=== PATIENT | female | born 1975 | race Caucasian/White ===

== ENCOUNTER 2017-06-02 12:52 | Emergency (ER) | payer MEDICAID ==
[2017-06-02 12:57] VITALS: BP 137/95; BMI 22.1
[2017-06-02] MEDS ORDERED: DEMEROL INJ IM ONE (13:23)
[2017-06-02] MEDS ORDERED: PHENERGAN INJ 25 MG IM ONE (13:24)
--- NOTE | 2017-06-02 13:27 | DR.FBACK ---
HPI - Time Seen Time seen: 13:22 - PCP Primary Care Physician: NLD - Complaint Chief Complaint Doctor Comments: Patient complains of lower back pain for the past two days onset while moving a window air conditioner from her bedroom to her front room with onset of pain when she squat down to put the air conditioner in the room she felt the pain and it has been hurting since. States she has been having sharp pain that is non- radiating with the pain worst on movement and bending. States the pain is 10 of 10. she denies numbness in legs. She denies hematuria, dysuria or history of kidney stones. Chief Complaint:: PT. C/O LOWER BACK PAIN THAT BEGAN ON SUNDAY. PT. WAS MOVING AN AIR CONDITIONER AND USING HOLE DIGGERS IN HER GARDEN ON SUNDAY WHEN THE PAIN STARTED. - Reviewed Nurses Notes Review: Yes - Source History Provided: Patient - Mode of Arrival Mode of Arrival: Ambulatory - Timing Onset of Chief Complaint: 05/31/17 - Duration Duration: Constant How lon Duration: Days - Location Back Pain Location: BACK, Lumbar Radiation To: None - Severity Severity: None - Quality Quality: Sharp - Context Onset: Spontaneous, Twisting, Lifting Circumstance: Arthritis, Lifting History of: None - Modifying Factors Worsened By: Movement, Twisting - Associated Signs and Symptoms Back Pain Symptoms: None Numbness: None Weakness: None PMH - PMH Past Medical History: Yes Past Medical History: Anxiety, Asthma Past Surgical History: Yes Surgical History: Hysterectomy - Family History History of Family Medical Conditions: Yes Family Medical History: Cancer - Social History Does patient currently use any type of tobacco product: Yes Have you used tobacco products in the last 12 months: Yes Type of Tobacco Use: Cigarettes Does any household member use tobacco: No Alcohol Use: None Do you use any recreational Drugs:: No Lives With: Spouse Lives Where: Home - infectious screening In the last 2 months have you had wt loss of >10#?: NO Have you had fever, night sweats or hemotysis?: No Have you traveled outside the country in the last 6 months?: No Isolation: Standard ROS - Review of Systems Constitutional: No Symptoms Reported. negative: See HPI, Chills, Diaphoresis, Fever, Malaise, Weakness, Irritable, Fatigue, Loss of Appetite, Other Eyes: No Symptoms Reported. negative: See HPI, Eye Pain, Blurred Vision, Tearing, Discharge, Photophobia, Diplopia, Other ENTM: No Symptoms Reported. negative: See HPI, Ear Pain, Ear Discharge, Pulling on Ears, Hearing Loss, Nose Pain, Nose Discharge, Epistaxis, Nose Congestion, Mouth Pain, Mouth Swelling, Loose Teeth, Drooling, Throat Pain, Throat Swelling, Ear Foreign Body Respiratoy: No Symptoms Reported. negative: See HPI, Productive Cough, Non- Productive Cough, Moist Cough, Dry Cough, Hacking Cough, Barking Cough, Brassy Cough, Orthopnea, Short of Breath, Stridor, Wheezing, Hemoptysis, Other Cardiovascular: No Symptoms Reported. negative: See HPI, Chest Pain, Edema, Palpitations, Syncope, Cyanosis, Skin Mottling, Other Gastrointestinal/Abdominal: No Symptoms Reported. negative: See HPI, Abdominal Pain, Constipation, Diarrhea, Nausea, Vomiting, Food Intolerance, Other Genitourinary: No Symptoms Reported Neurological: No Symptoms Reported. negative: See HPI, Anxiety, Depressed, Emotional Problems, Headache, Numbness, Paresthesia, Pre-existing Deficit, Seizure, Tingling, Tremors, Weakness, Dizziness, Problems Walking, Speech Problem, Other Musculoskeletal: Back Pain Integumentary: No Symptoms Reported. negative: See HPI, Change in Color, Change in Hair/Nails, Dryness, Lesions, Lumps, Rash, Itching, Wound, Bruises, Juandice, Other Hematologic/Lymphatic: No Symptoms Reported. negative: See HPI, Anemia, Blood Clots, Easy Bleeding, Easy Bruising, Swollen Glands, Lymphadenopathy, Other Endocrine: No Symptoms Reported Psychiatric: No Symptoms Reported. negative: See HPI, Anxiety, Depression, Hallucinations, Excessive crying, Suicidal, Other PE - Vitals Vital Signs: Temp Pulse Resp BP BP Pulse Ox 06/02/17 12:52 97.5 F L 97 H 20 137/95 98 08/30/16 20:23 115/83 02/15/16 14:28 119/75 - General Limitations: No Limitations General Appearance: Alert, In Distress (moderate) - Head Head Exam: Normal Inspection, Atraumatic, Normocephalic - Eyes Eye exam: Normal Appearance, PERRL, EOMI. negative: Scleral Icterus, Conjunctival Injection, Nystagmus, Miosis, Mydrasis, Periorbital Swelling, Periorbital Tenderness, Other - ENT ENT Exam: Normal Exam, Normal Oropharynx, Normal External Ear Exam, Mucous Membranes Moist, TM's Normal Bilaterally - Chest Chest Inspection: Normal Inspection, Symmetric Chest Wall Rise - Respiratory Respiratory Exam: Normal Lung Sounds Bilat Respiratory Exam: Bilateral Clear to Auscultation - Cardiovascular Cardiovascular Exam: Regular Rate, Normal Rhythm, Normal Heart Sounds. negative : Bradycardia, Tachycardia, Irregular Rhythm, Systolic Murmur, Diastolic Murmur , Rubs, Gallop, Clicks, JVD, +S1, +S2, +S3, +S4, Other - Abdominal Exam Abdominal Exam: Normal Inspection, Normal Bowel Sounds, Soft Abdominal Tenderness: negative: RUQ, RLQ, LUQ, LLQ, Epigastrium, Suprapubic, Diffuse, Mild, Moderate, Severe, Other - Genitourinary External Exam: Female: Deferred : Speculum Exam (Female): Deferred : Bimanual Exam (female): Deferred - Extremities Extremities Exam: Normal Inspection, Full ROM, Normal Capillary Refill. negative: Tenderness, Edema, Joint Swelling, Calf Tenderness, Other - Back Back Exam: Normal Inspection, Full ROM, Tenderness, Paraspinal Tenderness, Vertebral Tenderness. negative: (R) CVA Tenderness, (L) CVA Tenderness, Muscle Spasm, Rashes, (R) Sciatic Notch Tenderness, (L) Sciatic Notch Tendern, (R) Straight Leg Raise, (L) Straight Leg Raise, Other - Neurological Neurological Exam: Alert, Oriented X3, CN II-XII Intact, Reflexes Normal. negative: Normal Gait (gait not tested) - Psychiatric Psychiatric Exam: Normal Affect, Normal Mood. negative: Depressed, Agitated, Anxious, Flat Affect, Manic, Homicidal Ideation, Suicidal Ideation, Other - Skin Skin Exam: Warm, Dry, Intact, Normal Color ROR - XRAY XRAY Interpreted by: Radiologist (CT lumbar: Retrolisthesis L4 on L5. L5-S1 disc bulging) - Diagnosis Discharge Problem: Degenerative disc disease at L5-S1 level, Retrolisthesis, Low back pain - Discharge Plan Disposition: 01 HOME, SELF-CARE Condition: Stable Prescriptions: Acetaminophen/Codeine Tab [TYLENOL w/CODEINE #3 (300 MG/30 MG) *] 1 tab PO Q4- 6H PRN #30 tab PRN Reason: Pain Methylprednisolone Dosepak 4Mg [MEDROL DOSEPAK (4 mg tab x 21)] 1 maria elena PO ONCE # 1 maria elena - Follow ups/Referrals Follow ups/Referrals: NFD,None [Primary Care Provider] - 3 days SEFERINO CALLAWAY [STAFF PHYSICIAN] - 3 days - Instructions Instructions: Back Pain, Adult, [id number], Degenerative Disk Disease, Spinal Stenosis, [id number]
[2017-06-02] MEDS ORDERED: DEMEROL INJ ONE (13:32)
[2017-06-02] MEDS ORDERED: PHENERGAN INJ 25 MG ONE (13:32)
--- NOTE | 2017-06-02 14:50 | CT ---
HISTORY: Lifting injury Study: CT lumbar spine without contrast Comparison: None Technique: Axial non contrast images with coronal and sagittal reformats. Dose reduction procedures were used with MA/kv Findings: The bones are osteopenic. There is slight retrolisthesis L4 on L5 peer E The alignment is otherwise normal. The vertebral bodies are of average height. No significant compression fractures are identif ied. The pedicles, spinous processes, and posterior elements are intact. The sacrum and SI joints ap pear intact. The disc levels are evaluated as follows: L1-2 level: Broad-based disk bulging effaces the thecal sac. The neural foramina are patent. The boom nts are normal. L2-3 level: Broad-based disc protrusion contributes along with ligamentous hypertrophy and facet art hropathy to a mild spinal stenosis with lateral recess and foraminal narrowing bilaterally. L3-4 level: Broad-based disc protrusion contributes along with pedicular shortening and facet arthro thiago to a relative spinal stenosis with lateral recess and foraminal narrowing bilaterally. L4-5 level: There is slight retrolisthesis L4 on L5 which contributes along with ligamentous hypertr ophy, pedicular shortening, ligamentous hypertrophy and mild facet arthropathy to a relatively sever e spinal stenosis with severe lateral recess and foraminal narrowing bilaterally. L5-S1 level: Broad-based disk bulging effaces the thecal sac and contributes along with pedicular sh ortening to lateral recess narrowing bilaterally. Mild facet arthropathy is present. IMPRESSION: As above Reported By:
== END 2017-06-02 15:37 | disposition home or self-care (01) ==
LOC: ER 12:57
DX: M51.36 Other intervertebral disc degeneration, lumbar region (principal); M43.16 Spondylolisthesis, lumbar region; M54.5 Low back pain
CPT/HCPCS: 72131; 96372; 99283; J2175; J2550

== ENCOUNTER 2017-08-13 22:33 | Emergency (ER) | payer MEDICAID ==
[2017-08-13 22:40] VITALS: BP 142/93; BMI 22.1
--- NOTE | 2017-08-13 22:51 | DR.GENAD ---
HPI - PCP Primary Care Physician: LEE ANN - HPI Comment HPI Comment: INCREASING PAIN SINCE. HISTORY BACK PAIN. - Complaint/Symptoms Chief Complaint Doctors Comments: LOW BACK INJURY WHILE MOVING FURNITURE. 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 AND I FELT SOMETHING IN MY BACK POP IT'S HURTING ME SO BAD" - Nurses notes reviewed Nurses Notes Review: Yes - Source History Provided: Patient - Mode of Arrival Mode of Arrival: Wheelchair - Timing Onset of Chief Complaint: 08/13/17 Came on: Suddenly - Duration Duration: Constant Duration: Hours - Severity Severity: Moderate PMH - PMH Past Medical History: Yes Past Medical History: Anxiety, Asthma Past Surgical History: Yes Surgical History: Hysterectomy - Family History History of Family Medical Conditions: Yes Family Medical History: Cancer - Social History Type of Tobacco Use: Cigarettes Does any household member use tobacco: Yes Alcohol Use: None Do you use any recreational Drugs:: No Lives With: Family Lives Where: Home - infectious screening In the last 2 months have you had wt loss of >10#?: NO Have you had fever, night sweats or hemotysis?: No Have you traveled outside the country in the last 6 months?: No Isolation: Standard ROS - Review of Systems Constitutional: No Symptoms Reported Eyes: No Symptoms Reported ENTM: No Symptoms Reported Respiratoy: No Symptoms Reported Cardiovascular: No Symptoms Reported Gastrointestinal/Abdominal: No Symptoms Reported Genitourinary: No Symptoms Reported Neurological: No Symptoms Reported Musculoskeletal: Back Pain, Back Integumentary: No Symptoms Reported Hematologic/Lymphatic: No Symptoms Reported Endocrine: No Symptoms Reported All Other Systems: Reviewed and Negative PE - Vital Signs Vitals: Temperature 98.6 F Pulse Rate 107 Respiratory Rate 18 Blood Pressure [Right Arm] 119/75 Blood Pressure 142/93 O2 Sat by Pulse Oximetry 100 - General Limitations: No Limitations General Appearance: Alert - Head Head Exam: Normal Inspection - Eyes Eye exam: Normal Appearance - ENT ENT Exam: Normal External Ear Exam External Ear Exam: Normal External Inspection TM/Canal Exam: Bilateral Normal Nose Exam: Normal Nose Exam Mouth Exam: Normal Inspection Throat Exam: Normal Inspection - Neck Neck Exam: Normal Inspection - Chest Chest Inspection: Symmetric Chest Wall Rise - Respiratory Respiratory Exam: Normal Lung Sounds Bilat Respiratory Exam: Bilateral Clear to Auscultation - Cardiovascular Cardiovascular Exam: Regular Rate, Normal Rhythm, Normal Heart Sounds - Abdominal Exam Abdominal Exam: Normal Bowel Sounds, Soft. negative: Tenderness - Extremities Extremities Exam: Normal Inspection - Back Back Exam: Paraspinal Tenderness (LOWER BACK), Vertebral Tenderness (LOWER BACK. ) - Neurologic Neurological Exam: Alert, Oriented X3 - Psychiatric Psychiatric Exam: Normal Affect, Normal Mood - Skin Skin Exam: Normal Color MDM - Differential Diagnosis Differential Diagnosis: BACK FRACTURE, STRAIN, SPRAIN, CONTUSION Course - Treatment Treatment: SEE REPORT - Education/Counseling Education/Counseling: Patient, Education Educated On: Diagnosis, Needs for Follow Up ROR - XRAY XRAY Findings: REPORT DISCUSS WITH PATIENT. - Diagnosis Discharge Problem: Back pain Qualifiers: Back pain location: low back pain Chronicity: acute Back pain laterality: unspecified Sciatica presence: without sciatica Qualified Code(s): M54.5 - Low back pain Back strain Qualifiers: Encounter type: initial encounter Qualified Code(s): S39.012A - Strain of muscle, fascia and tendon of lower back, initial encounter - Discharge Plan Disposition: 01 HOME, SELF-CARE Condition: Stable Prescriptions: Cyclobenzaprine HCl [FLEXERIL 10 MG *] 10 mg PO TID #20 tab Ibuprofen [MOTRIN TAB 600 MG *] 600 mg PO TID PRN #20 tab PRN Reason: Pain/Inflammation - Follow ups/Referrals Follow ups/Referrals: ANUJA MELTON [STAFF PHYSICIAN] - 2 days NFD,None [Primary Care Provider] - 2 days - Instructions Instructions: Musculoskeletal Pain, Back Pain, Adult, [id number], Joint Pain , [id number] Additional Instructions: RETURN TO ED IF WORSE.
[2017-08-13] MEDS ORDERED: DEMEROL INJ IM ONE (22:57)
[2017-08-13] MEDS ORDERED: ZOFRAN INJ 4 MG VIAL IM ONE (22:57)
[2017-08-13] MEDS ORDERED: FLEXERIL TAB 10 MG PO ONE (22:59)
[2017-08-13] MEDS ORDERED: ZOFRAN INJ 4 MG VIAL ONE (23:21)
[2017-08-13] MEDS ORDERED: DEMEROL INJ ONE (23:21)
[2017-08-13] MEDS ORDERED: FLEXERIL TAB 10 MG ONE (23:21)
--- NOTE | 2017-08-13 23:42 | RAD ---
EXAM: Lumbar Spine X-Ray INDICATION: Lumbar pain COMPARISION: No priors for comparison TECHNIQUE: AP, lateral L-S junction, and lateral views were obtained, 3 views FINDINGS: Concave superior endplate defects are present at L1 and L2 . Both appear chronic. There is moderate d isc space narrowing throughout the lumbar levels. Mild degenerative endplate changes are also present . No acute fracture or subluxation. The facets are intact. The surrounding soft tissues appear unrem arkable. IMPRESSION: Chronic superior endplate concave defects are present at L1 and L2. Moderate degenerative disc change s noted throughout the lumbar spine. No acute abnormality is identified. Reported By:
== END 2017-08-13 23:58 | disposition home or self-care (01) ==
LOC: ER 22:42
DX: S39.012A Strain of muscle, fascia and tendon of lower back, initial encounter (principal); M54.5 Low back pain; X50.0XXA Overexertion from strenuous movement or load, initial encounter; Y92.9 Unspecified place or not applicable
CPT/HCPCS: 72100; 96372; 99282; J2175; J2405

== ENCOUNTER 2017-12-21 | Emergency (ER) | payer MEDICAID ==
[2017-12-21 00:04] VITALS: BMI 22.3
[2017-12-21] MEDS ORDERED: MORPHINE SULFATE INJ 4 MG IM ONE (00:52)
[2017-12-21] MEDS ORDERED: ZOFRAN INJ 4 MG VIAL IM ONE (00:52)
--- NOTE | 2017-12-21 00:54 | DR.GENAD ---
HPI - HPI Comment HPI Comment: MORE PAINFULL CURRENTLY. NO LOC. PATIENT DID NOT TAKE MED BEFORE COMING. - Complaint/Symptoms Chief Complaint Doctors Comments: FELL AT HOME CHANGING HER BATHROOM FLOOR. PAIN LOWER BACK ON THE RIGHT SIDE. Chief Complaint:: PT STATES SHE WAS CHANGING THE PATTI IN HER BATHROOM TODAY 2 TIMES. C/O LOWER BACK PAIN AND RT LEG PAIN. NO SWELLING OR DEFORMITIES NOTED. PT STATES SHE IS VERY STIFF - Nurses notes reviewed Nurses Notes Review: Yes - Source History Provided: Patient - Mode of Arrival Mode of Arrival: Ambulatory - Timing Onset of Chief Complaint: 12/21/17 Came on: Suddenly - Duration Duration: Intermittent Duration: Days - Severity Severity: Moderate PMH - PMH Past Medical History: Yes Past Medical History: Anxiety, Asthma Past Surgical History: Yes Surgical History: Hysterectomy - Family History History of Family Medical Conditions: Yes Family Medical History: Cancer - Social History Do you use any recreational Drugs:: No - infectious screening Have you traveled outside the country in the last 6 months?: No ROS - Review of Systems Constitutional: No Symptoms Reported Eyes: No Symptoms Reported ENTM: No Symptoms Reported Respiratoy: No Symptoms Reported Cardiovascular: No Symptoms Reported Gastrointestinal/Abdominal: No Symptoms Reported Neurological: No Symptoms Reported Musculoskeletal: Back Pain (LOWER), Back (LOWER) Integumentary: Bruises Hematologic/Lymphatic: No Symptoms Reported Endocrine: No Symptoms Reported All Other Systems: Reviewed and Negative PE - Vital Signs Vitals: Temperature 98.2 F Pulse Rate [Left Radial] 98 Pulse Rate 111 Respiratory Rate 18 Blood Pressure [Right Arm] 135/86 Blood Pressure 137/91 O2 Sat by Pulse Oximetry 100 - General Limitations: No Limitations General Appearance: Alert - Head Head Exam: Normal Inspection - Eyes Eye exam: Normal Appearance - ENT ENT Exam: Normal Exam External Ear Exam: Normal External Inspection TM/Canal Exam: Bilateral Normal Nose Exam: Normal Nose Exam Mouth Exam: Normal Inspection Throat Exam: Normal Inspection - Neck Neck Exam: Trachea Midline - Chest Chest Inspection: Symmetric Chest Wall Rise - Respiratory Respiratory Exam: Normal Lung Sounds Bilat Respiratory Exam: Bilateral Clear to Auscultation - Cardiovascular Cardiovascular Exam: Regular Rate, Normal Rhythm, Normal Heart Sounds - Abdominal Exam Abdominal Exam: Normal Bowel Sounds, Soft. negative: Tenderness - Extremities Extremities Exam: Normal Inspection - Back Back Exam: (R) CVA Tenderness, Vertebral Tenderness (RT LOWER SPINE TE ) - Neurologic Neurological Exam: Alert, Oriented X3 - Psychiatric Psychiatric Exam: Normal Mood - Skin Skin Exam: Erythema MDM - Additional Information Additional Information Obtained From: Family - Differential Diagnosis Differential Diagnosis: LOW BACK PAIN, STRAN, SPRAIN, FRACTURE Course - Treatment Treatment: SEE ORDERS.. IM MORPHIN FOR PAIN WITH ZOFRAN IN ED. - Reevaluation 1st: Improved - Education/Counseling Education/Counseling: Patient, Family, Education Educated On: Treatment, Diagnosis, Needs for Follow Up ROR - XRAY XRAY Interpreted by: Radiologist XRAY Findings: REPORT DISCUSS WITH PATIENT. - Diagnosis Discharge Problem: Lumbosacral strain Qualifiers: Encounter type: initial encounter Qualified Code(s): S39.012A - Strain of muscle, fascia and tendon of lower back, initial encounter Lumbosacral ligament sprain Qualifiers: Encounter type: initial encounter Qualified Code(s): S33.5XXA - Sprain of ligaments of lumbar spine, initial encounter Contusion of lower back Qualifiers: Encounter type: initial encounter Qualified Code(s): S30.0XXA - Contusion of lower back and pelvis, initial encounter - Discharge Plan Condition: Stable Prescriptions: Cyclobenzaprine HCl [FLEXERIL 10 MG *] 10 mg PO TID #60 tab Ibuprofen [MOTRIN TAB 600 MG *] 600 mg PO TID PRN #90 tab PRN Reason: Pain/Inflammation Tramadol HCl 50 mg PO Q8H PRN #15 tablet PRN Reason: - Follow ups/Referrals Follow ups/Referrals: RUTHIE RAGSDALE [Primary Care Provider] - 3 days - Instructions Instructions: Back Pain, Adult, [id number] Additional Instructions: RETURN TO ED IF WORSE.
[2017-12-21] MEDS ORDERED: ZOFRAN INJ 4 MG VIAL ONE (00:57)
[2017-12-21] MEDS ORDERED: MORPHINE SULFATE INJ 4 MG ONE (00:58)
--- NOTE | 2017-12-21 02:46 | CT ---
CT lumbar spine without contrast Indication: Fall with lower back pain Technique: Helical CT images of the none were obtained without IV contrast. Reformatted images in the coronal and sagittal planes were also generated for review. Comparison: None Findings: Bones are mildly osteopenic. There is grade 1 degenerative retrolisthesis of L4 on L5. Vert ebral body heights and alignment are otherwise normal. No acute fracture or subluxation is identified . Prominent Schmorl's nodes are noted at T12-L1 and L1-L2. Mild multilevel degenerative disc disease is also noted, most significant at T12-L1, L1-L2 and L4-L5. The SI joints are intact. The unenhanced paraspinal soft tissues demonstrate no gross acute abnormality. Impression: No CT evidence of acute lumbar spine injury. Mild osteopenia and degenerative changes, as above. Reported By:
[2017-12-21 02:50] VITALS: BP 135/86
== END 2017-12-21 02:55 | disposition home or self-care (01) ==
LOC: ER
DX: S39.012A Strain of muscle, fascia and tendon of lower back, initial encounter (principal); S33.5XXA Sprain of ligaments of lumbar spine, initial encounter; S30.0XXA Contusion of lower back and pelvis, initial encounter; M85.80 Other specified disorders of bone density and structure, unspecified site; W19.XXXA Unspecified fall, initial encounter; Y92.009 Unspecified place in unspecified non-institutional (private) residence as the place of occurrence of the external cause
CPT/HCPCS: 72131; 96372; 99282; J2270; J2405